=== PATIENT | female | born 2000 | race Caucasian/White ===

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

== ENCOUNTER 2021-05-04 17:38 | Emergency (ER) | payer BC, SELFPAY ==
[2021-05-04] VITALS (10 sets, daily range): BP systolic 107–131; BP diastolic 66–85; PULSE 90–115; RESP 14–18; TEMP 37.2; O2SAT 98–100
--- NOTE | ~2021-05-04 | CT_ITS ---
EXAMINATION: CT abdomen pelvis w con INDICATION: Abdominal pain TECHNIQUE: Computed tomographic images of the abdomen and pelvis were obtained after the administrati on of 100 cc of Omnipaque 350 intravenous contrast. The dose-length product (DLP) was 174.15 mGy-cm. Automated exposure control and iterative reconstruction technique were employed. COMPARISON: None available FINDINGS: The lung bases are clear. The heart size is normal. The liver, spleen, pancreas, and adrena l glands are normal. There is questionable mild wall thickening of the gallbladder. The kidneys are u nremarkable. No pathologically enlarged abdominal or pelvic lymph nodes are identified. There is no f ree intraperitoneal gas or evidence of bowel obstruction. A moderate volume of colonic stool is prese nt. The appendix is not definitely visualized. IMPRESSION: 1. Possible mild gallbladder wall thickening. Recommend correlation for right upper quadrant tenderne ss and if present, further evaluation with ultrasound or nuclear hepatobiliary scan. Reviewed, dictated and finalized at location A. [employer] IMPRESSION: 1. Possible mild gallbladder wall thickening. Recommend correlation for right u pper quadrant tenderness and if present, further evaluation with ultrasound or nuclear hepatobiliary scan.
--- NOTE | ~2021-05-04 | XR_ITS ---
EXAMINATION: XR chest 1V portable 05/04/2021 18:21 INDICATION: Cough for 2 months. Asthma. PROCEDURE: AP portable chest COMPARISON: No prior studies for comparison. FINDINGS: The lungs are clear. The cardiomediastinal silhouette is within normal limits. There are no pleural effusions. There is no pneumothorax suspected. IMPRESSION: 1: NO ACUTE CARDIOPULMONARY DISEASE. Reviewed, dictated and finalized at location A. [employer]
[2021-05-04 18:14] LABS: Add Urine Microscopic? YES; Appearance Urine Cloudy (Clear); Bacteria Urine Trace /hpf; Bilirubin Urine Negative (Negative); Blood Urine Negative (Negative); Color Urine Yellow (Yellow); Glucose Urine UA Negative (Negative); Ketones Urine Negative (Negative); Leukocyte Esterase Ur Negative LEU/UL (Negative); Mucus Urine Rare /lpf; Nitrate Urine Negative (Negative); Protein Urine Negative (Negative); RBC Urine 0-2 /hpf (0-2); Specific Grav Ur 1.012 (1.001-1.035); Squamous Epithelial Cell Urine Many /hpf (Few); WBC Urine 0-3 /hpf
[2021-05-04] MEDS: SODIUM CHLORIDE 0.9% IV 1,000 ML 999 ML IV CONT (18:25)
[2021-05-04] MEDS: ONDANSETRON INJ 4 MG/2 ML VIAL IV PUSH (18:26)
[2021-05-04] MEDS: FAMOTIDINE 20 MG/2 ML VIAL IV PUSH (18:26)
[2021-05-04 18:39] LABS: Basophils Percent Auto 0.5 % (0.2-1.2); Eosinophils Absolute Auto 0.1 K/mm3 (0-0.3); Eosinophils Percent Auto 1.2 % (0-4.4); Hematocrit 40.6 % (37.0-47.0); Hemoglobin 13.8 g/dL (12.0-15.0); Immature Granulocyte Absolute 0.01 K/mm3 (0.00-0.031); Immature Granulocyte Percent A 0.2 % (0-0.5); Lymphocytes Absolute Auto 1.98 K/mm3 (0.9-3.2); Lymphocytes Percent Auto 32.8 % (18.3-44.2); Mean Corpuscular Hemoglobin 28.9 pg (26-34); Mean Corpuscular Volume 84.9 fl (80-100); Mean Platelet Volume 11.6 fl (7.4-10.4); Monocytes Absolute Auto 0.8 K/mm3 (0.1-0.6); Monocytes Percent Auto 13.6 % (2.6-8.5); Neutrophils Absolute Auto 3.1 K/mm3 (1.3-6.7); Neutrophils Percent Auto 51.7 % (45.5-73.1); Platelet Count Result 189 k/mm3 (150-375); Red Blood Count 4.78 M/mm3 (4.2-5.4)
[2021-05-04 18:49] LABS: Magnesium 2.1 mg/dL (1.6-2.3)
--- NOTE | 2021-05-04 19:30 | PC.NURSE ---
Assumed care of pt this time, report taken from Teresa TURNER. Pt states she feels better after medication administration. Pt and family updated on POC.
--- NOTE | 2021-05-04 21:06 | PC.NURSE ---
This RN contacted lab and spoke with Danitza about CMP and lipase. She stated she will look into it.
[2021-05-04 21:27] LABS: Alanine Aminotransferase 15 U/L (4-35); Albumin Level 4.8 g/dL (3.7-5.6); Alkaline Phosphatase 63 U/L (45-116); Anion Gap 11 mmol/L (8-16); Aspartate Amino Transferase 27 U/L (14-36); Bilirubin,Total 0.4 mg/dL (0.2-1.3); Blood Urea Nitrogen 7 mg/dL (8-21); Calcium 9.7 mg/dL (8.9-10.7); Carbon Dioxide 22 mmol/L (22-30); Chloride 105 mmol/L (98-107); Estimated CRCL calculation 81 ml/min; Estimated Glomerular Filt Rate > 60; Glucose 91 mg/dL (65-110); Lipase 73 U/L (23-300); Potassium 3.8 mmol/L (3.4-5.0); Sodium 138 mmol/L (134-143)
--- NOTE | 2021-05-04 21:38 | PC.NURSE ---
Pt given boxed lunch. EDP at bedside.
[2021-05-04] MEDS: SODIUM CHLORIDE 0.9% IV 500 ML 999 ML IV CONT (21:39)
--- NOTE | 2021-05-04 22:33 | ED.GENADULT ---
HPI - General Adult General Chief complaint: Nausea/Vomiting/Diarrhea Stated complaint: URI, nausea x2 months Time Seen by Provider: 05/04/21 18:01 Source: RN notes reviewed History of Present Illness HPI narrative: Patient presents emergency department from urgent care for multiple complaints. Patient states that over the past 3 months she has been having consistent URI symptoms with rhinorrhea and a cough. She states the cough is productive of clear to mild yellowish sputum also reports intermittent sore throats she states that she has been seen in the clinic at her school several times for this with negative work-up she also states for the past 2 weeks she has been having some nausea states one episode of emesis last night she denies any fevers or chills chest pain abdominal pain diarrhea or any other symptoms patient states she does feel nauseous at this time. Related Data Allergies Allergy/AdvReac Type Severity Reaction Status Date / Time No Known Allergies Allergy Unverified 03/05/16 23:52 Review of Systems Review of Systems: Gen.: Denies fevers or chills Eyes: Denies eye pain or visual change ENT: See HPI Respiratory: Denies shortness of breath cough CV: Denies chest pain or palpitations GI: Denies abdominal pain or diarrhea. Reports nausea and emesis denies burning, urgency, frequency or hematuria Musculoskeletal: Denies back pain or muscle pain Neuro: Denies numbness, tingling, weakness or focal weakness Skin: Denies rash Except as documented, all other systems reviewed and negative [facility] Past Medical History Medical History (Updated 05/04/21 @ 22:44 by Dave Ross DO) Anxiety Social History Social History (Updated 05/04/21 @ 22:41 by Dave Ross DO) Smoking status: Never smoker Exam Narrative: APPEARANCE: No acute distress, nontoxic, resting in bed EYES: EOMI HEENT: Normocephalic, atraumatic, TMs clear bilaterally nares patent or mucosa moist erythema exudate posterior pharynx airway patent tolerating own secretions RESPIRATORY: No respiratory distress Clear to auscultation bilaterally with no rhonchi wheezing or rales. CARDIOVASCULAR: Regular rate and rhythm without murmurs rubs or gallops. ABDOMINAL: Soft, nontender, nondistended, no rebound or guarding MUSCULOSKELETAl: Moves all extremities. No clubbing, cyanosis or edema. NEURO: Awake and alert. Following commands, speech normal, no focal deficits SKIN:: Warm, dry. No rashes lesions or abrasions PSYCHIATRIC: Normal affect/mood, Course Course Emergency Course: The patient's ongoing symptoms and nausea will obtain imaging of the abdomen Following findings on CT scan of the abdomen pelvis reevaluate the patient the patient has no tenderness in the epigastric or right upper quadrant with deep palpation the remainder of the abdomen is soft and nontender as well Patient able to eat and drink in ED with no emesis states she is feeling much better patient states she did have a Covid swab at the urgent care prior to leaving earlier today and they will call her with the results Discussed with patient results of workup and diagnosis. Discussed need for follow-up with primary care, proper use of medication, and reasons to return to the emergency department. Patient understands and agrees to current treatment plan Vital Signs Vital signs: Vital Signs Temperature 99 F 05/04/21 17:47 Pulse Rate 96 05/04/21 17:47 Respiratory Rate 16 05/04/21 17:47 Blood Pressure 123/84 05/04/21 17:47 Pulse Oximetry 98 05/04/21 17:47 Temperature 99 F 05/04/21 17:47 Pulse Rate 103 H 05/04/21 22:14 Respiratory Rate 18 05/04/21 22:14 Blood Pressure 131/85 05/04/21 22:14 Pulse Oximetry 100 05/04/21 22:14 Medical Decision Making Vital Signs Vital Signs: Vital Signs Temperature 99 F 05/04/21 17:47 Pulse Rate 96 05/04/21 17:47 Respiratory Rate 16 05/04/21 17:47 Blood Pressure 123/84 05/04/21 17:47 Pulse Oximetry
== END 2021-05-04 23:05 | disposition home or self-care (01) ==
PROVIDERS: Emergency Provider Emergency Medicine; PCP Internal Medicine
DX: K21.9 Gastro-esophageal reflux disease without esophagitis (principal); R93.2 Abnormal findings on diagnostic imaging of liver and biliary tract
CPT/HCPCS: 36415; 71045; 74177; 80053; 81001; 81025; 83690; 83735; 85025; 87804; 96361; 96374; 96375; 99284; J2405; J7030; J7040; Q9967

== ENCOUNTER 2021-05-30 09:08 | Outpatient (CLI) | payer BC, SELFPAY ==
--- NOTE | ~2021-05-30 | US_ITS ---
US abdomen limited INDICATION: Gastroesophageal reflux disease PROCEDURE: Realtime right upper abdominal ultrasound. COMPARISON: No prior studies for comparison. FINDINGS: The pancreas is normal without focal mass or pancreatic ductal dilation. Liver echotexture is normal without focal mass or intrahepatic biliary dilatation. There is normal directional flow i n the portal vein. The gallbladder is normal without stones, gallbladder wall thickening or pericholecystic fluid. Comm on bile duct measures 1.0 mm. No sonographic Obrien's sign. IMPRESSION: 1: Normal limited abdominal ultrasound. Reviewed, dictated and finalized at location A. [employer]
== END 2021-05-30 09:09 | disposition home or self-care (01) ==
LOC: ANHIMG 09:11
PROVIDERS: PCP Internal Medicine; Visit Provider Internal Medicine
DX: K21.9 Gastro-esophageal reflux disease without esophagitis (principal)
CPT/HCPCS: 76705

== ENCOUNTER 2022-11-09 17:47 | Emergency (ER) | payer BC, SELFPAY ==
[2022-11-09] VITALS (11 sets, daily range): BP systolic 121–135; BP diastolic 73–90; PULSE 106–135; RESP 15–19; TEMP 36.7; O2SAT 99–100
--- NOTE | 2022-11-09 18:08 | ED.ALCOHOL ---
HPI - Alcohol General Chief Complaint: Alcohol Stated Complaint: ETOH Time Seen by Provider: 11/09/22 18:01 History of Present Illness HPI narrative: Patient is a 22-year-old female presenting with alcohol intoxication. Patient was reportedly out celebrating her recent 22st birthday. Her father reports that she has been drinking shots for the last 6 to 7 hours. She was found unresponsive so EMS was called. She was minimally responsive for them. On my evaluation, the patient is sleeping but she is briskly responsive to painful stimuli. She is protecting her airway. Further history limited due to altered mental status. Related Data Allergies Allergy/AdvReac Type Severity Reaction Status Date / Time No Known Allergies Allergy Verified 11/09/22 18:23 Review of Systems Review of Systems: ROS unobtainable: Yes unobtainable due to mental status PMFSH Past Medical History Medical History Anxiety Social History Social History Smoking status: Never smoker Exam Narrative: GENERAL: Young female laying in bed sleeping, responsive to painful stimuli, protecting her airway HEAD: Normocephalic, atraumatic. EYES: Pupils 6 mm bilaterally, equal and responsive ENT: Nares clear, no rhinorrhea or epistaxis. Mucous membranes moist. NECK: Supple. CHEST: Clear to auscultation. No respiratory distress. + Gag reflex, protecting her airway HEART: Regular rate and rhythm. ABDOMEN: Soft, nontender, nondistended EXTREMITIES: Normal range of motion. No edema. SKIN: Warm, dry, no rash. NEURO: Responsive to painful stimuli PSYCH: Sleeping Course Vital Signs Vital signs: Vital Signs Temperature 98.1 F 11/09/22 17:47 Pulse Rate 113 H 11/09/22 17:47 Respiratory Rate 18 11/09/22 17:47 Blood Pressure 126/81 11/09/22 17:47 Pulse Oximetry 99 11/09/22 17:47 Oxygen Delivery Room Air 11/09/22 17:47 Temperature 98.1 F 11/09/22 17:47 Pulse Rate 124 H 11/09/22 20:15 Respiratory Rate 18 11/09/22 20:15 Blood Pressure 124/73 11/09/22 20:15 Pulse Oximetry 100 11/09/22 20:15 Oxygen Delivery Room Air 11/09/22 17:47 MDM - Alcohol MDM Narrative Medical decision making narrative: Patient is a 22-year-old female presenting with alcohol intoxication. Patient is tachycardic on arrival, otherwise vitals are within normal limits. Exam is remarkable for the above. She has briskly responsive to painful stimuli. She is protecting her airway. She is saturating 99 to 100% on room air. Plan to check an ethanol level and drug screen. We will place the patient on end-tidal and cardiac monitoring. Drug screen is negative. Ethanol level is 261. Patient has been observed for approximately 4 hours. She is now awake and alert. She is responding appropriately. Her father is at bedside. Patient is ambulating steadily. Her father feels comfortable bringing her home. She lives with her parents and he states that there will be multiple people keeping an eye on her. Advised that the patient abstain from alcohol and binge drinking. Patient voices understanding. She and her father are agreeable with plan. Discharged in stable condition. Differential Diagnosis Differential diagnosis: Likely alcohol intoxication Medical Records Attestation: I reviewed the patient's medical records. Lab Data Attestation: I reviewed the patient's lab results. Labs: Lab Results 11/09/22 11/09/22 Range/Units 17:51 18:11 POC Capillary Glucose 117 H (65-105) mg/dl Urine Opiates Screen Negative (Negative) Urine Methadone Screen Negative (Negative) Ur Barbiturates Screen Negative (Negative) Ur Phencyclidine Scrn Negative (Negative) Ur Amphetamine Screen Negative (Negative) U Benzodiazepines Scrn Negative (Negative) Urine Cocaine Screen Negative (Negative) U Cannabinoids Sc
[2022-11-09 18:12] LABS: Glucose Point of Care 117 mg/dl (65-105)
[2022-11-09] MEDS: SODIUM CHLORIDE 0.9% IV 1,000 ML 999 ML IV CONT (18:23)
[2022-11-09 18:30] LABS: Ethanol 261 mg/dL (<10)
[2022-11-09 18:33] LABS: Amphetamine Screen Urine Negative (Negative); Barbiturate Screen Urine Negative (Negative); Benzodiazepines Screen Urine Negative (Negative); Cannabinoid Screen Urine Negative (Negative); Cocaine Screen Urine Negative (Negative); Methadone Screen Urine Negative (Negative); Opiate Screen Urine Negative (Negative); Phencyclidine Screen Urine Negative (Negative)
--- NOTE | 2022-11-09 18:56 | PC.NURSE ---
Opens eyes with stimulation. Capnography 39-40. Father at bedside.
--- NOTE | 2022-11-09 20:03 | PC.NURSE ---
190 Assumed pt care from Juliana Kirkland RN
== END 2022-11-09 22:10 | disposition home or self-care (01) ==
PROVIDERS: Emergency Provider Emergency Medicine; PCP Internal Medicine
DX: F10.120 Alcohol abuse with intoxication, uncomplicated (principal); Y90.8 Blood alcohol level of 240 mg/100 ml or more
CPT/HCPCS: 36415; 80307; 82948; 96360; 99283; J7030

== ENCOUNTER 2024-01-04 19:02 | Emergency (ER) | payer BC, SELFPAY ==
[2024-01-04 19:16] VITALS: BP 150/78; PULSE 127; RESP 16; TEMP 37.2; O2SAT 99
--- NOTE | 2024-01-04 19:48 | ED.ABDPAIN ---
HPI - Abdominal Pain General Chief Complaint: Abdominal Pain Stated Complaint: pain in back/stomach,nauseated Time Seen by Provider: 01/04/24 19:40 Source: patient and RN notes reviewed Mode of arrival: ambulatory Limitations: no limitations History of Present Illness HPI narrative: Patient presents today complaining of 3-5 day history of lower abdominal discomfort in low back pain with nausea. No vomiting. This morning she notes dark colored urine. She has been taking Advil with some relief. She saw her OBGYN at the end of November and was diagnosed subsequently with a vaginal yeast infection and was treated with 2 doses of fluconazole and some intravaginal cream. Related Data Home Medications Medication Instructions Recorded Confirmed desvenlafaxine succinate 50 mg 50 mg PO DAILY 01/04/24 01/04/24 tablet,extended release 24 hr norethindrone 1 mg-ethinyl 1 tablet PO DAILY 01/04/24 01/04/24 estradiol 10 mcg (24)-iron 10 mcg(2) tablet (Lo Loestrin Fe) Allergies Allergy/AdvReac Type Severity Reaction Status Date / Time No Known Allergies Allergy Verified 01/04/24 19:22 Review of Systems Review of Systems: CONSTITUTIONAL: Denies body aches, fever, chills, or sweats. EYES: Denies visual changes, redness, or discharge. ENT: Denies rhinorrhea, congestion, sore throat, or otalgia. CARDIOVASCULAR: Denies chest pain, palpitations, or edema. RESPIRATORY: Denies cough or dyspnea. GASTROINTESTINAL: Denies nausea, vomiting, or diarrhea.+ lower abdominal pain GENITOURINARY: Denies dysuria or hematuria.+ dark urine SKIN: Denies rash, itching, or wounds. MUSCULOSKELETAL: Denies joint pain, or myalgia.+ low back pain NEUROLOGIC: Denies headache, numbness, tingling, or weakness. PSYCH: Denies depression or anxiety. [facility] Past Medical History Medical History Anxiety Social History Social History Smoking status: Never smoker Comments At time of signature, I have reviewed and agree with nursing past medical, surgical, social and family history unless otherwise noted. Please see nursing chart for further information. There is no relevant family history pertinent to the presenting complaint Exam Narrative: GENERAL: Well-appearing, well-nourished, and in no acute distress. HEAD: Normocephalic, atraumatic. EYES: EOMI. No redness or drainage. Conjunctivae normal. ENT: Mucous membranes pink and moist. NECK: Normal AROM. CHEST: No respiratory distress. Clear to auscultation. HEART: Regular rate and rhythm. No murmur appreciated. ABDOMEN: Soft, nondistended, normal active bowel sounds. Suprapubic tenderness without rebound or guarding. MUSCULOSKELETAL: No bony tenderness. EXTREMITIES: Normal range of motion. No edema. SKIN: Warm, dry, no rash. Capillary refill normal. Normal skin turgor. NEURO: No focal deficits. Alert and oriented x3. Gait steady. PSYCH: Normal affect. No signs of depression or anxiety. Course Course Level of Care: Express [facility] Visit Vital Signs Vital signs: Vital Signs Temperature 98.9 F 01/04/24 19:16 Pulse Rate 127 H 01/04/24 19:16 Respiratory Rate 16 01/04/24 19:16 Blood Pressure 150/78 H 01/04/24 19:16 Pulse Oximetry 99 01/04/24 19:16 Oxygen Delivery Room Air 01/04/24 19:16 Temperature 98.9 F 01/04/24 19:16 Pulse Rate 127 H 01/04/24 19:16 Respiratory Rate 16 01/04/24 19:16 Blood Pressure 150/78 H 01/04/24 19:16 Pulse Oximetry 99 01/04/24 19:16 Oxygen Delivery Room Air 01/04/24 19:16 Reviewed MDM - Abdominal Pain MDM Narrative Medical decision making narrative: Urinalysis is negative for infection. Due to patient's history and exam, recommend ER transfer for further evaluation due to limitations [facility]. Patient declines ER transfer at time. States she will go in symptoms worsen. Would like to f
[2024-01-04 19:56] LABS: EDUAAPPEAR Clear; EDUABILI Negative; EDUABLOOD Negative; EDUACOLOR1 Yellow; EDUAGLUCOSE Negative; EDUAKETONE Negative; EDUALEUKO Negative; EDUANITRATE Negative; EDUAPH 5.5; EDUAPROTEIN Negative; EDUASPGRAVITY 1.005
== END 2024-01-04 20:05 | disposition home or self-care (01) ==
PROVIDERS: Emergency Provider Nurse Practitioner; PCP Internal Medicine
DX: R10.31 Right lower quadrant pain (principal); R10.32 Left lower quadrant pain
CPT/HCPCS: 81003; 99213; G0463

== ENCOUNTER 2024-01-05 06:59 | Emergency (ER) | payer BC, SELFPAY ==
[2024-01-05 07:08] VITALS: BP 134/81; PULSE 115; RESP 16; TEMP 37.1; O2SAT 100
[2024-01-05 07:37] LABS: Basophils Percent Auto 0.5 % (0.2-1.2); Eosinophils Percent Auto 0.1 % (0-4.4); Hematocrit 39.8 % (37.0-47.0); Hemoglobin 13.4 g/dL (12.0-15.0); Immature Granulocyte Absolute 0.04 K/mm3 (0.00-0.031); Immature Granulocyte Percent A 0.5 % (0-0.5); Lymphocytes Absolute Auto 6.45 K/mm3 (0.9-3.2); Lymphocytes Percent Auto 77.2 % (18.3-44.2); Mean Corpuscular HGB Conc 33.7 g/dl (32-36); Mean Corpuscular Hemoglobin 28.5 pg (26-34); Mean Corpuscular Volume 84.7 fl (80-100); Mean Platelet Volume 11.2 fl (7.4-10.4); Monocytes Absolute Auto 0.4 K/mm3 (0.1-0.6); Monocytes Percent Auto 4.4 % (2.6-8.5); Neutrophils Absolute Auto 1.4 K/mm3 (1.3-6.7); Neutrophils Percent Auto 17.3 % (45.5-73.1); Platelet Count Result 142 k/mm3 (150-375); Red Cell Distribution Width 13.1 % (11.5-14.5); White Blood Count 8.4 K/mm3 (4.5-10.0)
[2024-01-05 07:38] LABS: Appearance Urine Clear (Clear); Bilirubin Urine Negative (Negative); Blood Urine Negative (Negative); Color Urine Yellow (Yellow); Glucose Urine UA Negative (Negative); Ketones Urine Negative (Negative); Leukocyte Esterase Ur Negative LEU/UL (Negative); Nitrate Urine Negative (Negative); Protein Urine Negative (Negative); Specific Grav Ur 1.009 (1.001-1.035)
[2024-01-05 07:40] LABS: BEDSIDEPREGUCG Negative
[2024-01-05 07:49] LABS: Alanine Aminotransferase 209 U/L (6-35); Albumin Level 4.3 g/dL (3.5-5.1); Alkaline Phosphatase 103 U/L (38-126); Anion Gap 11 mmol/L (4-12); Aspartate Amino Transferase 239 U/L (14-36); Bilirubin,Total 1.5 mg/dL (0.2-1.3); Blood Urea Nitrogen 7 mg/dL (7-17); Calcium 9.2 mg/dL (8.4-10.2); Carbon Dioxide 25 mmol/L (22-30); Chloride 101 mmol/L (98-107); Estimated CRCL calculation 77 ml/min; Estimated Glomerular Filt Rate > 60; Glucose 141 mg/dL (65-110); Lipase 66 U/L (23-300); Potassium 3.6 mmol/L (3.4-5.0); Sodium 137 mmol/L (137-145)
[2024-01-05 07:50] LABS: Platelet Estimate Adequate (Adequate); Schistocytes None Seen
[2024-01-05 07:51] LABS: Atypical Lymphocytes Present
[2024-01-05 07:52] LABS: Add Urine Microscopic? NO
[2024-01-05] MEDS: KETOROLAC 15 MG/ML VIAL (*BKC) IV PUSH (08:01)
[2024-01-05] MEDS: FAMOTIDINE 20 MG/2 ML VIAL IV PUSH (08:01)
[2024-01-05] MEDS: SODIUM CHLORIDE 0.9% IV 1,000 ML 999 ML IV CONT (08:02)
[2024-01-05] MEDS: DICYCLOMINE HCL INJ 20 MG/2 ML VIAL IM (08:02)
[2024-01-05 08:23] VITALS: BP 128/81; PULSE 94; RESP 16; O2SAT 100
[2024-01-05 08:48] LABS: Influenza A QL RT-PCR Negative (Negative); Influenza B QL RT-PCR Negative (Negative); RSV RNA, RT-PCR Negative (Negative); SARS-CoV-2 RNA PCR Negative (Negative)
--- NOTE | 2024-01-05 09:05 | ED.GENADULT ---
HPI - General Adult General Chief complaint: Abdominal Pain Stated complaint: abdominal pain Time Seen by Provider: 01/05/24 07:04 History of Present Illness HPI narrative: This is a 23-year-old female presenting with 5 days of abdominal pain. Pain is described as intermittently sharp and achy. It is diffuse throughout her abdomen. It is 3/10 in intensity. The pain comes and goes throughout the day. She has never had pain like this before. His improved with Advil. It is worse after meals. She has had an episode of diarrhea and some nausea. She denies subjective fevers URI symptoms, chest pain difficulty breathing or urinary symptoms. No sick contacts at home. Last menstrual period was 1 month ago She was seen in urgent care last night and they recommended she come to the ED. Related Data Home Medications Medication Instructions Recorded Confirmed desvenlafaxine succinate 50 mg 50 mg PO DAILY 01/04/24 01/04/24 tablet,extended release 24 hr norethindrone 1 mg-ethinyl 1 tablet PO DAILY 01/04/24 01/04/24 estradiol 10 mcg (24)-iron 10 mcg(2) tablet (Lo Loestrin Fe) Allergies Allergy/AdvReac Type Severity Reaction Status Date / Time No Known Allergies Allergy Verified 01/05/24 07:11 [facility] Past Medical History Medical History Anxiety Social History Social History Smoking status: Never smoker Exam Narrative: APPEARANCE: No apparent distress. Well appearing Head: atraumatic. EYES: EOMI, NOSE: Atraumatic NECK: Trachea midline RESPIRATORY: No increased rate of breathing clear to auscultation CARDIOVASCULAR: RRR, no peripheral edema. Vital signs listed as 115 in triage although when interviewed the patient it was 81 without intervention. ABDOMINAL: Non-distended soft nontender no guarding rebound, no CVA MUSCULOSKELETAl: No obvious deformities NEURO: Alert. Moving 4/4 extremities SKIN:: Warm, dry. Normal color PSYCHIATRIC: Normal affect Course Vital Signs Vital signs: Vital Signs Temperature 98.8 F 01/05/24 07:08 Pulse Rate 115 H 01/05/24 07:08 Respiratory Rate 16 01/05/24 07:08 Blood Pressure 134/81 01/05/24 07:08 Pulse Oximetry 100 01/05/24 07:08 Oxygen Delivery Room Air 01/05/24 07:08 Temperature 98.8 F 01/05/24 07:08 Pulse Rate 94 01/05/24 08:23 Respiratory Rate 16 01/05/24 08:23 Blood Pressure 128/81 01/05/24 08:23 Pulse Oximetry 100 01/05/24 08:23 Oxygen Delivery Room Air 01/05/24 07:08 Medical Decision Making [facility] Narrative Medical decision making narrative: -Course: 21-year-old female presenting 4-5 days of diffuse abdominal pain associated with nausea and diarrhea. Vital signs this is 115 heart rate at triage although by time I interviewed patient was down 81 without intervention. Her abdominal exam is benign. Laboratory studies within acceptable limits. We discussed the risks and benefits of getting a CT scan given her young age and both the patient and her mother are comfortable giving this another couple days and following up with her primary care before ordering invasive testing. At this time the presumptive diagnosis is gastroenteritis due to viral illness. Patient discharged with close primary care follow-up. Given return precautions. 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 Minor elevations in liver enzymes. No tenderness in the right upper quadrant. suspect due to viral illness.. This can be followed by primary care to ensure resolution. Urine not indicative infection. viral swabs negative -Dx t
== END 2024-01-05 09:24 | disposition home or self-care (01) ==
PROVIDERS: Student in an Organized Health Care Education/Training Program; Emergency Provider Emergency Medicine; PCP Internal Medicine
DX: R10.84 Generalized abdominal pain (principal); Z20.822 Contact with and (suspected) exposure to COVID-19; F41.9 Anxiety disorder, unspecified
CPT/HCPCS: 36415; 80053; 81003; 81025; 83690; 85025; 87637; 96361; 96372; 96374; 96375; 99284; J0500; J1885; J7030